=== PATIENT | male | born 1940 | race Caucasian/White ===

== ENCOUNTER 2017-11-24 10:08 | Emergency (ER) | payer MEDICARE ==
[~2017-11-24] VITALS: Ht 177.8 cm; Wt 89.0 kg
[~2017-11-24 10:08] MED LIST: ADLT ASA LOW81 MG PO; CIPROFLOXACN500 MG PO; CLINDAMYCIN150 MG PO; FLORASTOR250 M1 PO; LEVAQUIN750 MG PO; MUCINEX600 MG PO; PREDNISONE20 MG PO; TESSALON200 MG PO
[2017-11-24] MEDS ORDERED: KEFLEX500 MG PO (10:42)
[2017-11-24 11:20] VITALS: BP 127/77
== END 2017-11-24 11:20 | disposition home or self-care (01) ==
LOC: ED 10:08
DX: L03.113 Cellulitis of right upper limb (principal); S40.811A Abrasion of right upper arm, initial encounter; W22.09XA Striking against other stationary object, initial encounter; Y93.B9 Activity, other involving muscle strengthening exercises